=== PATIENT | female | born 1940 | race Two or more races ===

== ENCOUNTER 2022-01-23 04:50 | Inpatient (IN) | payer OTHER ==
[~2022-01-23] VITALS: Ht 149.9 cm; Wt 60.3 kg
--- NOTE | 2022-01-23 05:00 | NUR ---
[place] FROM HOME A/OX3, C/O SOB, DENIES ANY OTHER SYMPTOMS AT THIS TIME
[2022-01-23 05:32] LABS: BASOPHILS % (AUTO) 0.3 % (0.0-2.0); EOSINOPHILS % (AUTO) 2.4 % (0.0-6.0); LYMPHOCYTES # (AUTO) 1.3 K/uL (0.8-4.8); LYMPHOCYTES % (AUTO) 11.8 % (20.0-44.0); MEAN CORPUSCULAR HGB CONC 35 g/dl (31.0-36.0); MEAN CORPUSCULAR VOLUME 120 fL (82-100); MONOCYTES # (AUTO) 0.7 K/uL (0.1-1.30); MONOCYTES % (AUTO) 6.4 % (2.0-12.0); NEUTROPHILS # (AUTO) 8.8 K/uL (1.8-8.9); NEUTROPHILS % (AUTO) 79.1 % (43.0-81.0); PLATELET COUNT (AUTO) 264 K/uL (150-450); WHITE BLOOD COUNT (AUTO) 11.2 K/uL (4.3-11.0)
[2022-01-23 05:33] LABS: HEMOGLOBIN 4.6 g/dL (11.5-14.8); RED BLOOD CELL COUNT(AUTO) 1.09 MIL/uL (4.0-5.2)
--- NOTE | 2022-01-23 05:34 | NUR ---
WIRE TRANSFER CLERK AT PT'S BEDSIDE
[2022-01-23 05:39] LABS: HEMATOCRIT 13 % (33-45)
[2022-01-23 05:43] LABS: BAND % (MANUAL) 2 % (0.0-5.0)
[2022-01-23 05:44] LABS: EOSINOPHILS % (MANUAL) 2 % (0-4); LYMPHOCYTES % (MANUAL) 12 % (16-48); MONOCYTES % (MANUAL) 6 % (0-11.0)
[2022-01-23 05:54] LABS: CALCIUM, SERUM 8.3 mg/dL (8.5-10.1); CARBON DIOXIDE 27 mmol/L (21-32); CHLORIDE 107 mmol/L (98-107); CREATININE 0.9 mg/dL (0.6-1.3); GLUCOSE 153 mg/dL (74-106); POTASSIUM 3.7 mmol/L (3.5-5.1); SODIUM SERUM 143 mmol/L (136-145); UREA NITROGEN, BLOOD 27 mg/dL (7-18)
--- NOTE | 2022-01-23 05:54 | NUR ---
COVID SWAB COLLECTED AND SENT
--- NOTE | 2022-01-23 06:00 | NUR ---
CONSENT FOR BLOOD TRANSFUSION SIGNED
--- NOTE | 2022-01-23 06:02 | NUR ---
DR SMITH AT BED SIDE
[2022-01-23 06:07] LABS: ALANINE AMINOTRANSFERASE 27 U/L (12-78); ALKALINE PHOSPHATASE 95 U/L (46-116); ASPARTATE AMINOTRANSFERASE 28 U/L (15-37); BILIRUBIN,DIRECT 0.7 mg/dL (0.0-0.2); BILIRUBIN,TOTAL 11.5 mg/dL (0.2-1.0); TOTAL PROTEIN, SERUM 6.8 g/dL (6.4-8.2)
--- NOTE | 2022-01-23 06:07 | NUR ---
PAGED EPRP, AWAITING FOR DR KLINE'S CALL BACK
--- NOTE | 2022-01-23 06:12 | NUR ---
DR SMITH ON THE PHONE WITH [facility]
[2022-01-23] MEDS ORDERED: CETI-90 PO (07:43)
[2022-01-23] MEDS ORDERED: OLOP2.5D12 EACHEYE (07:43)
[2022-01-23] MEDS ORDERED: CALC-105 PO (07:43)
[2022-01-23] MEDS ORDERED: POLY15DR40 EACHEYE (07:43)
[2022-01-23] MEDS ORDERED: ZOLE5INF IV (07:43)
[2022-01-23] MEDS ORDERED: POTA10TA PO (07:43)
[2022-01-23] MEDS ORDERED: BUSP10TA3 PO (07:43)
[2022-01-23] MEDS ORDERED: MELA5TAB PO (07:43)
[2022-01-23] MEDS ORDERED: FAMO10TA41 PO (07:43)
[2022-01-23] MEDS ORDERED: CYAN100020 SL (07:43)
[2022-01-23] MEDS ORDERED: MAGN500T2 PO (07:43)
[2022-01-23] MEDS ORDERED: POLY10DR3 EACHEYE (07:43)
[2022-01-23] MEDS ORDERED: METO-295 PO (07:43)
[2022-01-23] MEDS ORDERED: TRAZ-252 PO (07:43)
[2022-01-23] MEDS ORDERED: ACET-868 PO (07:43)
[2022-01-23] MEDS ORDERED: FOLI0.4T6 PO (07:43)
[2022-01-23] MEDS ORDERED: CICL6.1H2 INH (07:43)
[2022-01-23] MEDS ORDERED: HYDR12.55 PO (07:43)
[2022-01-23] MEDS ORDERED: ONDANSETRON HCL/PF 4 MG/2 ML VIAL IVP PRN (08:30)
[2022-01-23] MEDS ORDERED: MAGNESIUM HYDROXIDE 30 ML UDC PO PRN (08:30)
[2022-01-23] MEDS ORDERED: MAG HYDROX/AL HYDROX/SIMETH 30 ML UDC PO PRN (08:30)
[2022-01-23] MEDS ORDERED: ACETAMINOPHEN 325 MG TABLET PO PRN (08:30)
[2022-01-23] MEDS ORDERED: Z GUARD REMEDY 4 OZ OINT TP PRN (08:30)
[2022-01-23] MEDS ORDERED: METOCLOPRAMIDE HCL 10 MG TABLET PO PRN (08:30)
[2022-01-23] MEDS ORDERED: TRAZODONE 50 MG TABLET PO PRN (08:30)
[2022-01-23] MEDS: cetrizine 10 MG TABLET PO SCH (09:00)
[2022-01-23] MEDS: PANTOPRAZOLE 40 MG VIAL IV SCH (09:00)
--- NOTE | 2022-01-23 09:38 | NUR ---
EWELINA SIMPSON NP, W/ NEW ORDER FOR [facility]; ORDER READ BACK AND VERIFIED.
[2022-01-23] MEDS ORDERED: cetrizine 10 MG TABLET ONE (10:00)
[2022-01-23] MEDS ORDERED: PANTOPRAZOLE 40 MG VIAL ONE (10:00)
--- NOTE | 2022-01-23 10:31 | NUR ---
ROOM 109 Addendum: 01/23/22 at 1149 by DILCIAO CHANGED TO ROOM 103
--- NOTE | 2022-01-23 11:30 | NUR ---
OBTAINED 1PRBC FROM LAB VIA EMERGENCY RELEASE; FORM SIGNED BY EWELINA SIMPSON NP. BLOOD TRANSFUSION STARTED VS TAKEN AND RECORDED. WILL MONITOR FOR TRANSFUSION REACTION ACCORDINGLY.
--- NOTE | 2022-01-23 11:47 | NUR ---
PT IN BED A/O X4, NOT IN ACUTE DISTRESS. VS TAKEN AND RECORDED 15MINS INTO THE BLOOD TRANSFUSION. PT HAS NO COMPLAINT OF PAIN, CHILLS, NOR FLANK PAIN. WILL INCREASE RATE ACCORDINGLY.
[2022-01-23 12:00] VITALS: BP 140/55
--- NOTE | 2022-01-23 12:00 | NUR ---
RN note RECEIVED PATIENT A/OX4 WITH ONE UNIT OF PRBC RUNNING.
--- NOTE | 2022-01-23 12:30 | NUR ---
REPORT GIVEN TO VIANCA RN ROOM 103 AT 10:15 FOR JOSUE
--- NOTE | 2022-01-23 13:50 | NUR ---
RN NOTE PRBC TRANSFUSION ENDED NO REACTION NOTED VITAL SIGNS DOCUMENTED
[2022-01-23 14:16] VITALS: BP 143/64
[2022-01-23 16:00] VITALS: BP 152/66
--- NOTE | 2022-01-23 17:16 | NUR ---
RN Note RECEIVED CALL FROM [facility] PER DR LOPEZ PATIENT WAS ADMINISTERED PRBC WITH ANTIBODIES THAT DID NOT MATCH PATIENT TYPE. PATIENT IS TO HAVE URINE COLLECTED AND LABS DRAWN. PLACED ORDER FOR URINE DIPSTICK, AB SCREEN AND CROSS MATCH. PATIENT IS NOT TO RECEIVE PENDING UNIT OF BLOOD UNTIL TRANSFUSION BLOOD WORK HAS BEEN DONE REACTION HAS BEEN DONE.
[2022-01-23 17:29] LABS: BASOPHILS % (AUTO) 0.5 % (0.0-2.0); EOSINOPHILS % (AUTO) 1.9 % (0.0-6.0); LYMPHOCYTES # (AUTO) 0.9 K/uL (0.8-4.8); LYMPHOCYTES % (AUTO) 9.2 % (20.0-44.0); MEAN CORPUSCULAR HGB CONC 35 g/dl (31.0-36.0); MEAN CORPUSCULAR VOLUME 109 fL (82-100); MONOCYTES # (AUTO) 0.8 K/uL (0.1-1.30); MONOCYTES % (AUTO) 8.3 % (2.0-12.0); NEUTROPHILS # (AUTO) 7.5 K/uL (1.8-8.9); NEUTROPHILS % (AUTO) 80.1 % (43.0-81.0); PLATELET COUNT (AUTO) 189 K/uL (150-450); WHITE BLOOD COUNT (AUTO) 9.3 K/uL (4.3-11.0)
[2022-01-23] MEDS: busPIRone 5 MG TABLET PO SCH (17:38)
[2022-01-23 18:44] LABS: RED BLOOD CELL COUNT(AUTO) 1.55 MIL/uL (4.0-5.2)
[2022-01-23 18:48] LABS: HEMOGLOBIN 5.9 g/dL (11.5-14.8)
[2022-01-23 18:50] LABS: HEMATOCRIT 17 % (33-45)
--- NOTE | 2022-01-23 18:56 | NUR ---
RN CLOSING NOTE PATIENT RESTING IN BED A/OX4 ON ROM AIR WITH NO CURRENT COMPLAINTS OF PAIN OR SOB. PATIENT HAS IV ASSESS ON RIGHT AC 22G AND LEFT FOREARM 18G SL. PATIENT IS CURRENTLY UNDERGOING TRANSFUSION REACTION PROTOCOL AND IS AWARE SHE NEEDS TO GIVE US A URINE SAMPLE.SAFETY MEASURES IN PLACE, CALL LIGHT WITHIN REACH AND BED ALARM ACTIVATED WILL ENDORSE TO NIGHT NURSE FOR JOSUE.
[2022-01-23 20:00] VITALS: BP 129/41
--- NOTE | 2022-01-23 20:00 | NUR ---
JIM RN NOTE PT IN BED AWAKE. A/O X 4, NO SOB, NO DISTRESS OR DISCOMFORT NOTED. DENIES PAIN. ON TELE ST HR 104. RAC #22G AND LFA #18G SL INTACT AND PATENT. ASSISTED HER REPOSITIONING IN BED. PT WANTS HER HOB ELEVATED SO SHE CAN BREATH EASY. PT ON ROOM AIR O2 SAT 97%. ALL NEEDS ATTENDED. KEPT HER DRY AND CLEAN. CONTINUE TO MONITOR HER.
[2022-01-23 20:39] LABS: HEMOGLOBIN 5.9 g/dL (11.5-14.8)
[2022-01-23 21:00] LABS: BAND % (MANUAL) 4 % (0.0-5.0); EOSINOPHILS % (MANUAL) 1 % (0-4); LYMPHOCYTES % (MANUAL) 12 % (16-48); MONOCYTES % (MANUAL) 5 % (0-11.0); NEUTROPHILS % (MANUAL) 78 (42-76)
[2022-01-23] MEDS: ZOLPIDEM TARTRATE 5 MG TABLET PO PRN (21:27)
[2022-01-24] VITALS (11 sets, daily range): BP systolic 98–152; BP diastolic 45–78
--- NOTE | 2022-01-24 03:00 | NUR ---
JIM RN NOTE URINE SPECIMEN COLLECTED AND SENT TO LAB. NO A/R NOTED FROM PREVIOUS BLOOD TRANSFUSION.
[2022-01-24 06:07] LABS: BASOPHILS % (AUTO) 0.5 % (0.0-2.0); EOSINOPHILS % (AUTO) 3.3 % (0.0-6.0); LYMPHOCYTES # (AUTO) 1.1 K/uL (0.8-4.8); LYMPHOCYTES % (AUTO) 11.2 % (20.0-44.0); MEAN CORPUSCULAR HGB CONC 35 g/dl (31.0-36.0); MEAN CORPUSCULAR VOLUME 111 fL (82-100); MONOCYTES # (AUTO) 0.7 K/uL (0.1-1.30); MONOCYTES % (AUTO) 7.3 % (2.0-12.0); NEUTROPHILS # (AUTO) 7.4 K/uL (1.8-8.9); NEUTROPHILS % (AUTO) 77.7 % (43.0-81.0); PLATELET COUNT (AUTO) 179 K/uL (150-450); WHITE BLOOD COUNT (AUTO) 9.5 K/uL (4.3-11.0)
[2022-01-24 06:38] LABS: HEMATOCRIT 17 % (33-45); HEMOGLOBIN 5.8 g/dL (11.5-14.8)
--- NOTE | 2022-01-24 06:47 | NUR ---
JIM RN NOTE PT IN BED AWAKE. NO DISTRESS OR DISCOMFORT NOTED. DENIES PAIN. PT H/H 5.8. CHECK WITH BLOOD BANK PERSON YARY. PER YARY HE WILL CHECK AND INFORM ABOUT THE BLOOD ISSUE AND WILL INFORM THE NURSES, WILL ENDORSE TO DAY SHIFT NURSE TO FOLLOW
[2022-01-24 06:52] LABS: CALCIUM, SERUM 8.1 mg/dL (8.5-10.1); CREATININE 0.7 mg/dL (0.6-1.3); POTASSIUM 3.3 mmol/L (3.5-5.1)
[2022-01-24 07:18] LABS: ALBUMIN 3.6 g/dL (3.4-5.0); BILIRUBIN,TOTAL 14.6 mg/dL (0.2-1.0); MAGNESIUM 2.4 mg/dL (1.8-2.4); TOTAL PROTEIN, SERUM 6.3 g/dL (6.4-8.2)
--- NOTE | 2022-01-24 07:30 | NUR ---
STUDIO OPERATIONS ENGINEER IN CHARGE NOTE RECEIVED PATIENT IN BED,ALERT ORIENTED, ON RA NO SOB NOTED AT THIS TIME, ON TELE MONIOTR ST 109 NOTED PATIENT YELLOWISH IN COLR , RT AC AND LFA HL INTACT BED IN LOWEST AND LOCKED POSITION , CALL LIGHT WITHIN REACH, WILL MONITOR
[2022-01-24] MEDS: PANTOPRAZOLE 40 MG VIAL IV SCH (08:28)
[2022-01-24] MEDS: busPIRone 5 MG TABLET PO SCH ×2 (08:33→17:04)
[2022-01-24] MEDS: cetrizine 10 MG TABLET PO SCH (08:33)
[2022-01-24] MEDS: POTASSIUM CHLORIDE 20 MEQ TAB.PRT.SR PO SCH (08:34)
--- NOTE | 2022-01-24 09:02 | NUR ---
satellite television installer note note slight sob ,placed on 2l nc, saturation 97% at this time. also called to blood bank spoke with stephanie stated that [facility] and blood will be ready latter on afternoon , aware that hg 5.8
[2022-01-24 10:21] LABS: BILIRUBIN,DIRECT 1.3 mg/dL (0.0-0.2); BILIRUBIN,TOTAL 14.1 mg/dL (0.2-1.0)
[2022-01-24 10:36] LABS: BAND % (MANUAL) 4 % (0.0-5.0); EOSINOPHILS % (MANUAL) 1 % (0-4); LYMPHOCYTES % (MANUAL) 10 % (16-48); MONOCYTES % (MANUAL) 6 % (0-11.0); MYELOCYTES % 1 % (0-0); NEUTROPHILS % (MANUAL) 78 (42-76)
[2022-01-24 11:16] LABS: D-DIMER 1.68 mg/L(FEU (0.17-0.50)
--- NOTE | 2022-01-24 11:16 | NUR ---
tommy rn note dr davidson at bedside aware that hg5.8 and no blood available yet ,aware that per [facility] recommendation get titter test , ordered to call air route traffic controller dr appiah consult , called and we await air route traffic controller to came, us abdomen done
[2022-01-24] MEDS: methylPREDNISolone SOD SUCC 125 MG/2ML VIAL IV SCH (12:58)
[2022-01-24] MEDS: FOLIC ACID 1 MG TABLET PO SCH (12:58)
--- NOTE | 2022-01-24 13:04 | NUR ---
telegraph dispatcher note called blood bank blood not ready yet , clarified wit dr appiah about platelets and rbc transfusion orders ststed slowly transfused prbc will f\u,
--- NOTE | 2022-01-24 14:03 | NUR ---
JIM RN NOTE PER DR KAYE DO BLOOD TRANSFUSION SING BLOOD WARMER MACHINE, CALLED [facility] WILL F\U .ALSO CONSENT FOR CT CHEST ABDOMEN , PELVIS OBTAINED
[2022-01-24] MEDS ORDERED: ACETAMINOPHEN 325 MG TABLET PO ONE (15:00)
[2022-01-24] MEDS ORDERED: diphenhydrAMINE HCL 50 MG/ML VIAL IV ONE (15:00)
--- NOTE | 2022-01-24 15:01 | NUR ---
tommy rn note per dr appiah premedicate with benadryl 25 mg iv and Tylenol pom30 min before blood transfusion
--- NOTE | 2022-01-24 15:40 | NUR ---
JMI RN NOTE STARTED BLOOD TRANSFUSION 1 UNIT PRBC ORDERED AT SLOW 50 ML PER HOUR , NO ADVERSE REACTION NOTED AT THIS TIME
[2022-01-24 16:16] LABS: BILIRUBIN,URINE SMALL (NEGATIVE); COLOR,URINE YELLOW (YELLOW); LEUKOCYTE ESTERASE ,URINE NEGATIVE (NEGATIVE); NITRITE, URINE NEGATIVE (NEGATIVE); PH,URINE 5.5 (5.0-8.0); PROTEIN,URINE NEGATIVE (NEGATIVE); UGLUCOSE NEGATIVE (NEGATIVE)
--- NOTE | 2022-01-24 17:11 | NUR ---
MEDICAL TYPIST NOTE CONT BLOOD TRANSFUSION AT 90 ML PER HOUR AT THIS TIME,RESTING COMFORTABLY FOR NOW NOT IN DIERESES, WILL CONT TO MONITOR
--- NOTE | 2022-01-24 18:29 | NUR ---
JIM RN NOTE CONT BLOOD TRANSFUSION,HL REMOVED BY PATIENT INCIDENTALLY, CONT BLOOD TRANSFUSION ON LT FA , WILL F\U ABLE TO EAT DINNER, ALL NEEDS ATTENDED RT AC
--- NOTE | 2022-01-24 19:09 | NUR ---
POWDER CORE TESTER NOTE BLOOD TRANSFUSION COMPLETED, NO ADVERSE REACTION NOTED, DR KAYE AT BEDSIDE UPDATED PATIENT CONDITION
--- NOTE | 2022-01-24 19:10 | NUR ---
RN NOTES RECEIVED PT S/P BLOOD TRANSFUSION FOR CONTINUITY OF CARE. PATIENT A/OX3-4 IN NO S/SX OF ACUTE DISTRESS AT THIS TIME; CURRENTLY ON 2L OF O2 VIA NC; WITH 02 SAT >95% AT THIS TIME.WITH IV ACCESS PATENT, INTACT AND FLUSHING WELL. WILL ENSURE SAFETY MEASURES WITHIN THE SHIFT. PATIENT BED ALARM IS ON. HEAD OF BED ELEVATED. BED IS LOCKED, IN LOWEST POSITION AND SIDE RAILS UP. CALL LIGHT WITHIN REACH OF THE PATIENT. WILL CONTINUE TO MONITOR AND REASSESS FOR ANY CHANGES AND WILL CARRY OUT ANY ONGOING AND ACTIVE MD ORDER.
--- NOTE | 2022-01-24 19:34 | NUR ---
JIM RN NOTE SPOKE WITH [facility] LEGAL ADMINISTRATIVE SECRETARY TO EMAIL TO [facility] TO GET RECORDS PER DR KAYE REQUEST, UNABLE TO FAX DUE TO MEDICAL RECORDS FROM [facility], REQUESTED E MAIL , [facility] LEGAL ADMINISTRATIVE SECRETARY UNABLE TO EMAIL AUTHORIZATION FOR MEDICAL RECORDS, STATED THAT PROGRAM IS NOT WORKING AT THIS TIME,WILL TRY TOMORROW, ENDORSED TO RN NEXT SHIFT LUIZ AND CHARGE NURSE HOSSEIN
[2022-01-24 20:49] LABS: HEMOGLOBIN 7.4 g/dL (11.5-14.8)
[2022-01-24] MEDS: ZOLPIDEM TARTRATE 5 MG TABLET PO PRN (22:58)
[2022-01-25] VITALS: BP 125/68
[2022-01-25 02:42] LABS: HEMOGLOBIN 7.6 g/dL (11.5-14.8)
[2022-01-25 04:00] VITALS: BP 125/71
--- NOTE | 2022-01-25 06:45 | NUR ---
RN CLOSING NOTE: PATIENT REMAINS IN ROOM IN NO SIGNS OF RESPIRATORY DISTRESS, PATIENT STILL ON 2L OF O2 VIA NC;TOLERATING WELL SATURATING @ >95% SP02. PLAN: TO SECURE MEDICAL RECORDS FROM [facility] OFFICE INVOLVED AND AWARE, NEED TO SEND REQUEST VIA EMAIL, WILL ENDORSE TO AM SHIFT TO F/U WITH [facility] CURRICULUM DEVELOPMENT MANAGER. SAFETY MEASURES IMPLEMENTED, BED IN LOWEST POSITION, LOCKED, SIDE RAILS UP, CALL LIGHT WITHIN REACH. ALL NEEDS AND ORDERS ADDRESSED DURING THE SHIFT. IV ACCESS MAINTAINED INTACT, SECURED AND FLUSHING WELL. ALL DUE MEDS GIVEN ORDERED & SCHEDULED ; PATIENT TOLERATED WELL. PATIENT KEPT CLEAN AND COMFORTABLE WITHIN THE SHIFT. PATIENT ENDORSED TO INCOMING SHIFT RN WITH STABLE VITAL SIGN AND FOR CONTINUITY OF CARE.
[2022-01-25 07:06] LABS: COMPLEMENT C3, SERUM 84 mg/dL (82-167); COMPLEMENT C4, SERUM <2 mg/dL (12-38)
--- NOTE | 2022-01-25 07:10 | NUR ---
RN NOTE RECEIVED PATIENT IN BED SITTING ALERT ORIENTED X4 VERBALLY RESPONSIVE ON 2L OXYGEN VIA NASAL CANNULA,O2:98% IV SITE IS ON LEFT FOREARM INTACT PATENT,SKIN JAUNDICE,AMBULATORY CONTINET BOWEL/BLADDER.SAFETY MEASURE IMPLEMENT BED IN LOW POSITON AND LOCKED,HEAD OF THE BED ELEVATED,CALL LIGHT WITHIN REACH CONTINUE TO MONITOR.
[2022-01-25] MEDS ORDERED: PANTOPRAZOLE 40 MG TABLET.DR PO SCH (07:30)
[2022-01-25 08:00] VITALS: BP 154/69
[2022-01-25 08:24] LABS: ALANINE AMINOTRANSFERASE 39 U/L (12-78); ALBUMIN 3.6 g/dL (3.4-5.0); ALKALINE PHOSPHATASE 93 U/L (46-116); ASPARTATE AMINOTRANSFERASE 31 U/L (15-37); BILIRUBIN,TOTAL 11.2 mg/dL (0.2-1.0); BILIRUBIN,TOTAL 11.3 mg/dL (0.2-1.0); CALCIUM, SERUM 8.3 mg/dL (8.5-10.1); CARBON DIOXIDE 27 mmol/L (21-32); CHLORIDE 110 mmol/L (98-107); CREATININE 0.7 mg/dL (0.6-1.3); GLUCOSE 124 mg/dL (74-106); SODIUM SERUM 144 mmol/L (136-145); TOTAL PROTEIN, SERUM 6.6 g/dL (6.4-8.2); UREA NITROGEN, BLOOD 27 mg/dL (7-18)
[2022-01-25 08:35] LABS: THYROID STIMULATING HORMONE 1.039 uIU/mL (0.358-3.74)
[2022-01-25] MEDS: busPIRone 5 MG TABLET PO SCH ×2 (08:54→16:48)
[2022-01-25] MEDS: cetrizine 10 MG TABLET PO SCH (08:54)
[2022-01-25] MEDS: FOLIC ACID 1 MG TABLET PO SCH (08:54)
[2022-01-25] MEDS: methylPREDNISolone SOD SUCC 125 MG/2ML VIAL IV SCH (08:55)
[2022-01-25] MEDS: POTASSIUM CHLORIDE 20 MEQ TAB.PRT.SR PO SCH (08:57)
[2022-01-25] MEDS ORDERED: IOHEXOL-350 100 ML VIAL IV ONE ×2 (10:29→11:17)
[2022-01-25] MEDS ORDERED: IV NS 0.9% 250 ML IV ONE (10:29)
[2022-01-25 11:07] LABS: HEMOGLOBIN 7.3 g/dL (11.5-14.8)
[2022-01-25 12:00] VITALS: BP 143/70
[2022-01-25] MEDS ORDERED: ALBUTEROL FS 2.5 MG/3 ML VIAL.NEB NEB SCH (14:30)
[2022-01-25 16:00] VITALS: BP 139/69
--- NOTE | 2022-01-25 16:21 | NUR ---
RN NOTE PATIENT WILL TRANSFER TO [facility] REPORT GIVEN TO [facility] TECHNICIAN TIME AT 5:PM.CONTINUE TO MONITOR.
--- NOTE | 2022-01-25 18:15 | NUR ---
CENTRAL SERVICES TECH NOTE PATIENT DISCHARGE TO [facility],ALERT ORIENTED X4 VERBALLY RESPONSIVE ON 2LOXYGEN VIA NASAL CANNULA,O2:99% NO SOB NOT ACUTE DISTRESS NOTED,SHE SIGNED TRANSFER PAPER AND BELONGING PAPER,SHE DISCHARGE WITH ALL HER BELONGINGS,AND ASSOCIATE MUSIC PROFESSOR WITH [facility] ACCOMPANIED BY 3EMTS.VITAL NAVYA BP 139/69 HR 106 RR:20 TEMPERATURE 98.2.
[2022-01-25] MEDS ORDERED: BUDESONIDE RESPULE INH 0.5 MG/2 ML AMPUL.NEB NEB SCH (19:30)
[2022-01-26 06:07] LABS: *SPE A/G RATIO 1.5 (0.7-1.7); *SPE ALPHA-1-GLOBULIN 0.4 g/dL (0.0-0.4); *SPE ALPHA-2-GLOBULIN 0.7 g/dL (0.4-1.0); *SPE BETA GLOBULIN 0.8 g/dL (0.7-1.3); *SPE M-SPIKE Not Observed g/dL (Not Observed)
[2022-01-26 07:07] LABS: HAPTOGLOBIN <10 mg/dL (41-333); IMMUNOGLOBULIN A, SERUM 80 mg/dL (64-422); IMMUNOGLOBULIN G, SERUM 852 mg/dL (586-1602); IMMUNOGLOBULIN M, SERUM 75 mg/dL (26-217)
[2022-01-27 01:06] LABS: COMPLEMENT, TOTAL (CH50) 16 U/mL (>41)
== END 2022-01-25 18:26 | disposition short-term general hospital (02) | DRG 809 ==
LOC: ER 04:50 → TRANSITION 09:15 → TELE-TD 10:38 → TELE1 01-25 10:14
PROVIDERS: ADMIT Nurse Practitioner Acute Care; ATTEND Internal Medicine
DX: D59.19 Other autoimmune hemolytic anemia (principal); J96.10 Chronic respiratory failure, unspecified whether with hypoxia or hypercapnia; J98.11 Atelectasis; K76.6 Portal hypertension; D53.9 Nutritional anemia, unspecified; J45.909 Unspecified asthma, uncomplicated; I10 Essential (primary) hypertension; M81.0 Age-related osteoporosis without current pathological fracture; E78.5 Hyperlipidemia, unspecified; E04.9 Nontoxic goiter, unspecified; Z90.13 Acquired absence of bilateral breasts and nipples; Z88.8 Allergy status to other drugs, medicaments and biological substances; Z91.011 Allergy to milk products; Z79.899 Other long term (current) drug therapy; R79.89 Other specified abnormal findings of blood chemistry; E83.51 Hypocalcemia; K75.4 Autoimmune hepatitis; Z85.72 Personal history of non-Hodgkin lymphomas
CPT/HCPCS: 36415; 71045-TC; 71270-TC; 74178; 76700-TC; 80048-TC; 80053-TC; 80076-TC; 81001; 82247-TC; 82248-TC; 82550-TC; 82607-TC; 82728-TC; 82784; 83010; 83540-TC; 83615-TC; 83690-TC; 83735-TC; 83880; 84100-TC; 84155; 84165; 84443-TC; 84484-TC; 85025-TC; 85027-TC; 85045-TC; 85396; 85730-TC; 86162; 86334; 86850-TC; 86880-TC; 87081-TC; 94799-TC; C9113; C9803; G0378; J1200; J2930; J7050; P9016; Q9967

== ENCOUNTER 2023-02-15 13:03 | Emergency (ER) | payer OTHER ==
[~2023-02-15] VITALS: Ht 152.4 cm; Wt 54.4 kg
[~2023-02-15 13:03] MED LIST: ACET-868 PO; BUSP10TA3 PO; CALC-105 PO; CETI-90 PO; CICL6.1H2 INH; CYAN100020 SL; FAMO10TA41 PO; FOLI0.4T6 PO; HYDR12.55 PO; MAGN500T2 PO; MELA5TAB PO; METO-295 PO; OLOP2.5D12 EACHEYE; POLY10DR3 EACHEYE; POLY15DR40 EACHEYE; POTA10TA PO; TRAZ-252 PO; ZOLE5INF IV
[2023-02-15] MEDS ORDERED: IV NS 0.9% 500 ML BAG IV ONE (13:30)
[2023-02-15 14:07] LABS: EOSINOPHILS % (AUTO) 0.2 % (0.0-6.0); HEMOGLOBIN 7.3 g/dL (11.5-14.8); LYMPHOCYTES # (AUTO) 0.3 K/uL (0.8-4.8); MONOCYTES # (AUTO) 0.5 K/uL (0.1-1.30)
[2023-02-15 14:13] LABS: INR 1.58 (0.91-1.10); PARTIAL THROMBOPLASTIN TIME 28.8 SEC (24.3-34.3); PROTHROMBIN TIME 16.2 SECS (9.2-11.1)
[2023-02-15 14:20] LABS: CALCIUM, SERUM 8.6 mg/dL (8.5-10.1); CARBON DIOXIDE 28 mmol/L (21-32); CHLORIDE 108 mmol/L (98-107); CREATININE 0.8 mg/dL (0.6-1.3); GLUCOSE 110 mg/dL (74-106); POTASSIUM 3.7 mmol/L (3.5-5.1); SODIUM SERUM 142 mmol/L (136-145); UREA NITROGEN, BLOOD 29 mg/dL (7-18)
[2023-02-15 14:26] LABS: ALANINE AMINOTRANSFERASE 35 U/L (12-78); ALKALINE PHOSPHATASE 94 U/L (46-116); ASPARTATE AMINOTRANSFERASE 23 U/L (15-37); BILIRUBIN,DIRECT 0.7 mg/dL (0.0-0.2); BILIRUBIN,TOTAL 9.3 mg/dL (0.2-1.0)
[2023-02-15 14:28] LABS: BASOPHILS % (AUTO) 0.1 % (0.0-2.0); HEMATOCRIT 22 % (33-45); LYMPHOCYTES % (AUTO) 4.3 % (20.0-44.0); MEAN CORPUSCULAR HEMOGLOBIN 33 PG (26.0-33.0); MEAN CORPUSCULAR HGB CONC 34 g/dl (31.0-36.0); MEAN CORPUSCULAR VOLUME 99 fL (82-100); MONOCYTES % (AUTO) 6.6 % (2.0-12.0); NEUTROPHILS # (AUTO) 7.2 K/uL (1.8-8.9); NEUTROPHILS % (AUTO) 88.8 % (43.0-81.0); PLATELET COUNT (AUTO) 113 K/uL (150-450); RED BLOOD CELL COUNT(AUTO) 2.19 MIL/uL (4.0-5.2); RED CELL DISTRIBUTION WIDTH 15.6 % (11.5-15.0); WHITE BLOOD COUNT (AUTO) 8.1 K/uL (4.3-11.0)
[2023-02-15 14:50] LABS: LACTIC ACID 2.3 mmol/L (0.4-2.0)
[2023-02-15 18:33] VITALS: BP 174/91; TEMP 99.1; O2SAT 99
== END 2023-02-15 20:08 | disposition hospice, inpatient (51) ==
LOC: ER 14:31
DX: D64.9 Anemia, unspecified (principal); I10 Essential (primary) hypertension; I25.10 Atherosclerotic heart disease of native coronary artery without angina pectoris; E78.5 Hyperlipidemia, unspecified; Z79.899 Other long term (current) drug therapy; Z88.1 Allergy status to other antibiotic agents
CPT/HCPCS: 99291; 96360; 36430; 93005; 71045; 84145; 85025; 80048; 87040 ×2; 83605 ×2; 80076; 36415; 84484 ×2; 85730; 86850; 86922; J7040; P9016